=== PATIENT | female | born 1975 | race Caucasian/White ===

== ENCOUNTER → 2018-12-23 | Outpatient (CLI) | payer OTHER, SELFPAY ==
--- NOTE | 2018-12-23 12:23 | US_ITS ---
STUDY: THYROID ULTRASOUND REASON FOR EXAM: Female, 43 years old. Nodules TECHNIQUE: Ultrasound evaluation of the thyroid was performed with real-time and static jordan-scale imaging. COMPARISON: None. FINDINGS: RIGHT LOBE: The right lobe of the thyroid gland measures 5.3 x 1.5 x 1.9 cm. There is a homogeneous echotexture. There is a solid hypoechoic 0.4 x 0.3 x 0.3 cm nodule LEFT LOBE: The left lobe of the thyroid gland measures 5.5 x 2.0 x 1.8 cm. There is a homogeneous echotexture. Multiple solid nodules, largest measures 2.4 x 1.7 x 1.1 cm ISTHMUS: The isthmus measures 2.0 mm. The regional lymph nodes are normal. US/Thyroid IMPRESSION: Borderline enlarged homogeneous thyroid gland with bilateral solid nodules. Since there are no previous studies available for comparison, further evaluation with thyroid uptake study recommended. If any of the nodule should demonstrates suspicious uptake characteristics, biopsy would be recommended. If not, six-month follow-up recommended to assure stability Electronically Signed: Otoniel Farmer MD at 17:23 EST , Service support ,
== END | disposition home or self-care (01) ==
LOC: US 12:21
PROVIDERS: Referring Provider Internal Medicine Endocrinology, Diabetes & Metabolism; Visit Provider Internal Medicine Endocrinology, Diabetes & Metabolism
DX: E04.2 Nontoxic multinodular goiter (principal)
CPT/HCPCS: 76536

== ENCOUNTER → 2018-12-30 | Outpatient (CLI) | payer OTHER, SELFPAY ==
[2018-12-30 14:44] LABS: Free T3 2.5 pg/mL (2.18-3.98); T4 Free Direct 0.98 ng/dL (0.76-1.46); Thyroid Stim Hormone (TSH) 2.76 uIU/mL (0.358-3.74)
== END | disposition home or self-care (01) ==
PROVIDERS: Referring Provider Internal Medicine Endocrinology, Diabetes & Metabolism; Visit Provider Internal Medicine Endocrinology, Diabetes & Metabolism
DX: E04.2 Nontoxic multinodular goiter (principal)
CPT/HCPCS: 36415; 84439; 84443; 84481